=== PATIENT | female | born 1985 | race Caucasian/White ===

== ENCOUNTER 2018-12-16 10:06 | Outpatient (CLI) | payer OTHER | END 2018-12-16 10:17 | disposition home or self-care (01) | LOC: SONOGRAMA 10:06 | DX: Z34.82 Encounter for supervision of other normal pregnancy, second trimester (principal) ==

== ENCOUNTER 2019-04-02 16:18 | Inpatient (IN) | payer OTHER ==
[~2019-04-02] VITALS: Ht 157.5 cm; Wt 3.6 kg
[2019-04-09] MEDS ORDERED: PRENATAL + DHA1 EAC1 PO (17:08)
[2019-04-22] MEDS ORDERED: VALTREX1000 MG PO (06:45)
== END 2019-04-25 12:23 | disposition home or self-care (01) | DRG 788 ==
LOC: OB/GYN 04-09 15:30 → O/R 04-22 05:30 → OB/GYN 04-22 07:00 → SURG-SUITE 04-22 09:21 → OB/GYN 04-22 15:30 → SURG-SUITE 04-25 12:23
PROVIDERS: ADMIT Obstetrics & Gynecology Maternal & Fetal Medicine
PROC: 10D00Z1 Extraction of Products of Conception, Low, Open Approach (ICD-10-PCS; principal; 2019-04-22 07:00)
PROC: 4A1HXCZ Monitoring of Products of Conception, Cardiac Rate, External Approach (ICD-10-PCS; 2019-04-22 07:00)
DX: O82 Encounter for cesarean delivery without indication (principal); Z3A.39 39 weeks gestation of pregnancy; Z37.0 Single live birth